=== PATIENT | female | born 1950 | race Caucasian/White ===

== ENCOUNTER → 2020-03-27 | Outpatient (CLI) | payer MEDICARE, OTHER | LOC: MC.RAD 09:23 | DX: Z12.31 Encounter for screening mammogram for malignant neoplasm of breast (principal) ==

== ENCOUNTER 2020-10-15 08:46 | Day surgery (SDC) | payer MEDICARE, OTHER ==
[~2020-10-15] VITALS: Ht 152.4 cm; Wt 86.5 kg
[2020-10-15] MEDS ORDERED: GLUCOPHAGE1000 MG PO (08:57)
[2020-10-15] MEDS ORDERED: PROTONIX 40MG T40 MG PO (08:57)
[2020-10-15] MEDS ORDERED: LIPITOR 80MG80 MG PO (08:57)
[2020-10-15] MEDS ORDERED: GLUCOTROL 5M5 MG/TAB PO (08:58)
[2020-10-15] MEDS ORDERED: TOPROL XL 25MG25 MG PO (08:58)
[2020-10-15] MEDS ORDERED: PRINIVIL20 MG PO (08:58)
[2020-10-15] MEDS ORDERED: DESYREL 50MG50 MG PO (08:59)
[2020-10-15 09:24] VITALS: BP 145/84; BP 191/79; PULSE 71; TEMP 97.1
[2020-10-15 10:15] VITALS: BP 145/75; PULSE 78; TEMP 97.8
--- NOTE | 2020-10-15 10:15 | NUR ---
Patient arrives to [facility] via cart, accompanied by [facility] RN Luz Guzmán. She is alert and oriented. SHe ambulates to the chair in her room with steady gait. PIV to TKO. Denies pain or nausea. She is offered and receives juice and a muffin. VSS on room air.
[2020-10-15 10:30] VITALS: BP 134/76; PULSE 74
--- NOTE | 2020-10-15 10:30 | NUR ---
Patient has ate her muffin/drank her juice - tolerating PO well. VSS. Denies further needs at this time.
[2020-10-15 10:45] VITALS: BP 140/64; PULSE 70
--- NOTE | 2020-10-15 10:55 | NUR ---
Dr. Caruso comes to the bedside and speaks with the patient at this time.
--- NOTE | 2020-10-15 10:56 | NUR ---
Patient has met discharge criteria. Discharge instructions are discussed. She denies any questions and verbalizes understanding. PIV is removed with catheter intact and hemostasis achieved. She is changing to her clothing independently.
--- NOTE | 2020-10-15 11:03 | NUR ---
Patient is escorted to the exit via wheelchair by staff. Her son picks her up and drives her home in a private vehicle at 1103.
== END 2020-10-15 11:03 | disposition home or self-care (01) ==
LOC: SDCO 08:46
DX: K21.9 Gastro-esophageal reflux disease without esophagitis (principal); K44.9 Diaphragmatic hernia without obstruction or gangrene; I10 Essential (primary) hypertension; E78.5 Hyperlipidemia, unspecified; M19.90 Unspecified osteoarthritis, unspecified site; E11.9 Type 2 diabetes mellitus without complications; Z86.010 Personal history of colon polyps; Z79.82 Long term (current) use of aspirin; Z79.899 Other long term (current) drug therapy; Z79.84 Long term (current) use of oral hypoglycemic drugs; Z90.49 Acquired absence of other specified parts of digestive tract; Z90.710 Acquired absence of both cervix and uterus; Z80.0 Family history of malignant neoplasm of digestive organs; Z80.7 Family history of other malignant neoplasms of lymphoid, hematopoietic and related tissues; Z80.41 Family history of malignant neoplasm of ovary
CPT/HCPCS: J2704; J7120

== ENCOUNTER 2021-04-16 08:15 | Outpatient (RCR) | payer MEDICARE, OTHER ==
[~2021-04-16 08:15] MED LIST: DESYREL 50MG50 MG PO; GLUCOPHAGE1000 MG PO; GLUCOTROL 5M5 MG/TAB PO; LIPITOR 80MG80 MG PO; PRINIVIL20 MG PO; PROTONIX 40MG T40 MG PO; TOPROL XL 25MG25 MG PO
== END 2021-04-18 | disposition home or self-care (01) ==
LOC: WSPT
DX: R53.1 Weakness (principal)

== ENCOUNTER → 2021-04-23 | Outpatient (CLI) | payer MEDICARE | LOC: MC.RAD 13:10 | DX: Z12.31 Encounter for screening mammogram for malignant neoplasm of breast (principal) ==

== ENCOUNTER → 2021-05-02 | Outpatient (CLI) | payer MEDICARE | LOC: ZCOL.LAB 16:22 | DX: R50.9 Fever, unspecified (principal); Z20.822 Contact with and (suspected) exposure to COVID-19 ==

== ENCOUNTER 2021-06-11 10:30 | Outpatient (RCR) | payer MEDICARE, OTHER | END 2021-06-16 | disposition home or self-care (01) | LOC: WSPT | DX: M75.22 Bicipital tendinitis, left shoulder (principal) ==

== ENCOUNTER 2021-06-24 10:30 | Outpatient (RCR) | payer MEDICARE, OTHER | END 2021-06-26 13:51 | disposition home or self-care (01) | LOC: WSPT 10:30 | DX: R29.898 Other symptoms and signs involving the musculoskeletal system (principal) ==

== ENCOUNTER → 2022-05-28 | Outpatient (CLI) | payer MEDICARE, OTHER | LOC: MC.RAD 07:13 | DX: Z12.31 Encounter for screening mammogram for malignant neoplasm of breast (principal); N63.10 Unspecified lump in the right breast, unspecified quadrant ==

== ENCOUNTER → 2022-06-01 | Outpatient (CLI) | payer MEDICARE, OTHER | LOC: MC.RAD 09:50 | DX: N63.10 Unspecified lump in the right breast, unspecified quadrant (principal) ==

== ENCOUNTER 2023-10-12 01:24 | Emergency (ER) | payer MEDICARE, OTHER ==
[~2023-10-12] VITALS: Ht 152.4 cm; Wt 72.7 kg
[~2023-10-12 01:24] MED LIST changes: +NORCO 325 MG-51 TAB PO
[2023-10-12 01:33] VITALS: TEMP 98.1
[2023-10-12] MEDS ORDERED: NS 500 ML IV ONE (02:30)
[2023-10-12] MEDS ORDERED: Mag/Al Hydrox/Simeth Susp 30 ML CUP PO ONE (02:30)
[2023-10-12 02:37] LABS: BASO # 0.1 K/mm3 (0.0-0.2); BASO % 0.7 % (0.0-2.0); EOS # 0.1 K/mm3 (0.0-0.7); EOS % 1.5 % (0.0-4.0); GRAN # 4.7 K/mm3 (1.4-6.5); GRAN % 50.8 % (42.2-75.2); HEMATOCRIT 40.6 % (37.0-47.0); HEMOGLOBIN 12.2 g/dl (12.5-16.0); LYMPH # 3.4 K/mm3 (1.2-3.4); LYMPH % 37.2 % (20.0-51.0); MEAN CELL VOLUME 87 fl (80.0-100.0); MEAN CORPUSCULAR HEMOGLOBIN 26 pg (27-31); MEAN CORPUSCULAR HGB CONC 30 g/dl (33.0-37.0); MEAN PLATELET VOLUME 10.8 fl (7.4-10.4); MONO # 0.8 K/mm3 (0.1-0.6); PLATELET COUNT 346 K/mm3 (130-400); RED BLOOD COUNT 4.66 M/mm3 (4.10-5.30); REDCELL DISTRIBUTION WIDTH-CV 13.7 % (11.5-14.5)
[2023-10-12 02:49] LABS: INR 0.8 (0.8-3.0); PROTHROMBIN TIME 9.2 SECONDS (9.7-12.8)
[2023-10-12 02:51] LABS: PARTIAL THROMBOPLASTIN TIME 32.4 SECONDS (26.0-37.0)
[2023-10-12 02:54] LABS: ALBUMIN 3.7 g/dL (3.4-4.8); CALCIUM 9.9 mg/dL (8.4-10.2); CREATININE, serum 0.89 mg/dL (0.57-1.11); MAGNESIUM 1.8 mg/dL (1.6-2.6); POTASSIUM 4.3 mEq/L (3.5-4.5); TOTAL PROTEIN 7.2 g/dl (6.2-8.1)
[2023-10-12 03:05] LABS: BILIRUBIN,TOTAL 0.3 mg/dL (0.2-1.2)
[2023-10-12 04:36] LABS: URINE APPEARANCE CLEAR (CLEAR/HAZY); URINE BLOOD NEGATIVE (NEGATIVE); URINE COLOR YELLOW (YELLOW); URINE GLUCOSE 3+ (NEGATIVE); URINE KETONE NEGATIVE (NEGATIVE); URINE NITRATE NEGATIVE (NEGATIVE); URINE PROTEIN(semi-quant) NEGATIVE (NEGATIVE); URINE UROBILINOGEN 0.2 E.U/dL (0.2-1.0)
[2023-10-12] MEDS ORDERED: PEPCID40 MG PO (05:04)
[2023-10-12 05:07] VITALS: BP 123/65; PULSE 64
[2023-10-12 07:02] LABS: COLLECTION METHOD CLEAN CATCH
== END 2023-10-12 05:14 | disposition other institution (70) ==
LOC: COL.ER 01:24
PROVIDERS: Internal Medicine
DX: K21.00 Gastro-esophageal reflux disease with esophagitis, without bleeding (principal); E11.9 Type 2 diabetes mellitus without complications; Z90.49 Acquired absence of other specified parts of digestive tract
CPT/HCPCS: J7040